=== PATIENT | male | born 1995 | race Caucasian/White ===

== ENCOUNTER 2024-02-16 19:48 | Emergency (ER) | payer BC ==
[2024-02-16] MEDS ORDERED: Dexamethasone 10 MG/ML VIAL ONE (20:07)
[2024-02-16] MEDS ORDERED: Cyclobenzaprine 10 MG TAB ONE (20:07)
[2024-02-16] MEDS ORDERED: Ketorolac Tromethamine 30 MG (1 mL) VIAL ONE (20:07)
== END 2024-02-16 20:40 | disposition home or self-care (01) ==
LOC: MADERS 19:48
DX: S29.012A Strain of muscle and tendon of back wall of thorax, initial encounter (principal); E10.9 Type 1 diabetes mellitus without complications; Z79.4 Long term (current) use of insulin; Z55.6 Problems related to health literacy; X58.XXXA Exposure to other specified factors, initial encounter
CPT/HCPCS: 96372; 99283; J1100; J1885